=== PATIENT | male | born 1955 | race Caucasian/White ===

== ENCOUNTER 2023-04-09 23:42 | Emergency (ER) | payer MEDICARE, SELFPAY ==
--- NOTE | 2023-04-09 23:30 | RT.EKG_ITS ---
APPROVED REPORT Exam: Resting ECG Reason for Exam: Arm Pain Patient Location: E HR:57 bpm ECG Measurements Heart Rate 57 AXIS NE 173 P 43 QRSd 86 QRS 10 QT 412 T 54 QTc 396 Conclusion Sinus bradycardia...rate< 60 Ventricular premature complex...V complex w/ short R-R interval Physician: no stemi
[2023-04-09 23:46] VITALS: BP 162/84; PULSE 60; RESP 16; TEMP 36.6; O2SAT 100
[2023-04-09 23:47] VITALS: O2SAT 97
[2023-04-09 23:50] VITALS: BP 162/84; PULSE 55; RESP 20; O2SAT 94
[2023-04-09 23:51] VITALS: PULSE 56; RESP 21; O2SAT 95
[2023-04-09 23:53] VITALS: RESP 14
[2023-04-10] VITALS (34 sets, daily range): BP systolic 109–152; BP diastolic 63–75; PULSE 47–60; RESP 12–62; O2SAT 91–97
[2023-04-10 00:03] LABS: Abs Immature Grans 0.03 10^3/uL (0.0-0.06); Absolute Basophil Count 0.04 10^3/uL (0.0-0.2); Absolute Eosinophil Count 0.29 10^3/uL (0.0-0.7); Absolute Lymphocyte Count 2.25 10^3/uL (1.2-3.4); Absolute Monocyte Count 0.55 10^3/uL (0.1-0.8); Absolute Neutrophil Count 4.01 10^3/uL (1.2-6.7); Basophils % 0.6; HCT 43.1 % (40.0-50.0); HGB 14.7 g/dL (13.5-17.5); Immature Grans % 0.4; Lymphocytes % 31.4; MCH 28.9 pg (27.0-33.0); MCHC 34.1 % (32.0-36.0); MCV 85 fL (80-95); MPV 9.8 fL (8.0-11.0); Monocytes % 7.7; Neutrophils % 55.9; Platelet Count 172 10^3/uL (130-400); RBC 5.08 10^6/uL (4.36-5.78); RDW-SD 40.1 fL; WBC 7.17 10^3/uL (4.4-10.8)
[2023-04-10] MEDS: nitroGLYcerin 0.4 MG TAB SL (00:10)
[2023-04-10] MEDS: Aspirin 81 MG CHEW 324 MG CH (00:10)
--- NOTE | 2023-04-10 00:15 | DI.RAD_ITS ---
Exam(s) XR SHOULDER LT COMPLETE 2+V EXAM: XR SHOULDER LT COMPLETE 2+V CLINICAL HISTORY: left chest and shoulder pain. TECHNIQUE: 2D digital imaging was performed of the left shoulder. Five images were obtained. AP, G rashey, Y-view and axillary views were obtained. COMPARISON: No exams were available for comparison FINDINGS: BONES: No acute fracture is present. No bony destructive lesion is seen. Postsurgical changes are see n at the acromioclavicular joint and the proximal humerus. JOINTS: No dislocation present. SOFT TISSUE: Normal. IMPRESSION: No acute abnormality. DATA REPOSITORY: RADIATION DOSE DELIVERED:
[2023-04-10 00:19] LABS: INR 0.9 (0.9-1.1); PTT Activated 22.9 sec (21.5-31.9); Prothrombin Time 9.5 sec (9.3-11.0)
--- NOTE | 2023-04-10 00:23 | W.ED.GENAD ---
Discharge Plan Disposition Patient Disposition: Home Discharge Details Clinical Impression: Acute pain of left shoulder Primary Care Provider: Alvin Davis ED Provider: Kristian Gonzalez Home Meds and New Rx's Prescriptions: No Action atorvastatin 40 mg Tablet 40 mg PO DAILY aspirin 325 mg Tablet 325 mg PO DAILY metoprolol succinate 200 mg Tablet Extended Release 24 Hr 200 mg PO DAILY lisinopril 20 mg Tablet 20 mg PO DAILY metformin 1,000 mg Tablet 1,000 mg PO DAILY hydrochlorothiazide 25 mg Tablet 25 mg PO DAILY Discharge Instructions Instructions: Shoulder Pain (ED) Additional Instructions: At this time your work-up shows no evidence of significant cardiac abnormality. Your symptoms may be secondary to compression on nerves, or muscle spasm. If you notice any worsening of your symptoms, or any new symptoms such as vomiting, diarrhea, fever, chills, shortness of breath, chest pain, numbness, weakness, or fainting , please return immediately to the emergency department for reevaluation. Please follow up with your primary care provider as soon as possible for reassessment and reevaluation. As always, it was a pleasure participating in your medical care today. Referrals: Alvin Davis MD [Primary Care Provider] - Medical Decision Making 68-year-old male with a past medical history of hypertension, high cholesterol, diabetes mellitus type 2, who presents today for evaluation of left arm pain. Patient has never smoked before. He denies any history of cardiac disease. Patient states that at about 4 PM he developed left arm achiness which radiates up into his left shoulder. He denies any activities that could have brought this on. He denies any trauma. He denies any numbness or tingling. This symptom began while he was sitting and at rest. It is not worsened with exertion. He denies any chest pain chest heaviness chest tightness. He denies any tearing or ripping sensation. No other complaints at this time. He denies any shortness of breath or exertional dyspnea. No other modifying factors. Pain is not made worse when he moves his arm. Exam demonstrates well-appearing male, vital signs stable. Radial pulses +2 bilaterally. No neurovascular deficits. Good range of motion for the left upper extremity. No focal tenderness. No signs of trauma. Differential includes muscle spasm, arthritis, less likely cardiac ACS. Will evaluate for concerning etiologies, monitor closely and reassess. EKG shows sinus bradycardia with no other significant concerning abnormalities. No evidence of STEMI. 3:40 AM Laboratory work-up demonstrates normal troponins x2, stable laboratory work-up, electrolytes normal. Magnesium slightly low at 1.4, this was corrected with 2 g of IV magnesium. Chest x-ray and x-ray of the shoulder negative for acute process. Patient's pain has resolved. Symptoms appear to be clinically inconsistent with ACS or STEMI at this time. FINDINGS: Lungs: Unremarkable. No consolidation. Pleural spaces: Unremarkable. No pleural effusion. No pneumothorax. Heart/Mediastinum: Unremarkable. No cardiomegaly. Bones/joints: Unremarkable. IMPRESSION: No acute findings. Thank you for allowing us to participate in the care of your patient. Dictated and Authenticated by: Manjit Pinzon MD 04/10/2023 1:23 AM Eastern Time ([place] & [place]) FINDINGS: Bones/joints: Normal. Soft tissues: Normal. IMPRESSION: No acute findings. Thank you for allowing us to participate in the care of your patient. Dictated and Authenticated by: Manjit Pinzon MD 04/10/2023 1:23 AM Eastern Time ([place] & [place]) HPI General Date/Time Provider Initiated Documentation: 04/09/23 23:45. HPI Narrative: 68-year-old male with a past medical history of hypertension, high cholesterol, diabetes mellitus type 2, who presents today for evaluation of left arm pain. Patient has never smoked before. He denies any history of cardiac disease. Patient states that at about 4 PM he developed left arm achiness which radiates up into his left shoulder. He denies any activities that could have brought this on. He denies any trauma. He denies any numbness or tingling. This symptom began while he was sitting and at rest. It is not worsened with exertion. He denies any chest pain chest heaviness chest tightness. He denies any tearing or ripping sensation. No other complaints at this time. He denies any shortness of breath or exertional dyspnea. No other modifying factors. Pain is not made worse when he moves his arm. Related Data Home Medications Medication Instructions Recorded Confirmed aspirin 325 mg tablet 325 mg PO DAILY 04/09/23 04/10/23 atorvastatin 40 mg tablet 40 mg PO DAILY 04/09/23 04/09/23 hydrochlorothiazide 25 mg tablet 25 mg PO DAILY 04/09/23 04/10/23 lisinopril 20 mg tablet 20 mg PO DAILY 04/09/23 04/09/23 metformin 1,000 mg tablet 1,000 mg PO DAILY 04/09/23 04/09/23 metoprolol succinate 200 mg 200 mg PO DAILY 04/09/23 04/09/23 tablet,extended release 24 hr Allergies Allergy/AdvReac Type Severity Reaction Status Date / Time Sulfa (Sulfonamide Allergy Unverified 04/09/23 23:56 Antibiotics) General Stated Complaint: Chest Pain RONEL: 3 Review of Systems All systems reviewed & are unremarkable except as noted in HPI and below PFSH All Active Problems (Updated 04/10/23 @ 03:31 by Kristian Gonzalez DO) Acute pain of left shoulder (Acute) Social History Smoking/Tobacco Use Status: Never Smoking risk assessment performed?: Yes Alcohol Intake: never Drug use: Never Do you feel safe at home: Yes Do you feel safe in your relationship?: Yes Exam Narrative Exam Narrative: 1.Const: Well-nourished, Well-developed, appearing stated age 2.Eyes: PERRL, no conjunctival injection, and symmetrical lids. 3.ENT: Atraumatic external nose and ears. Moist MM. Neck: Symmetric, trachea midline, No thyromegaly. 4.CVS: +S1/S2, No murmurs or gallops. Peripheral pulses 2+ and equal in all extremities. Brisk capillary refill in all extremities. 5.RESP: Unlabored respiratory effort. Clear to auscultation bilaterally. No wheezes rales or rhonchi 6.GI: Soft, Nontender/Nondistended, No hepatosplenomegaly. No guarding or rebound. 7.MSK: Normocephalic/Atraumatic, Extremities w/o deformity or ttp No cyanosis or clubbing, Normal movement of all extremities 8.Skin: Warm, Dry. No rashes or lesions. 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 Sensation grossly intact, no focal neurologic deficits. 10.Psych: (AAO) x3. Appropriate mood and affect Course Vital Signs Vital signs: Vital Signs Temperature 36.6 C 04/09/23 23:46 Pulse 60 04/09/23 23:46 Respiratory Rate 16 04/09/23 23:46 Blood Pressure 162/84 H 04/09/23 23:46 Pulse Oximetry 100 04/09/23 23:46 Temperature 36.6 C 04/09/23 23:46 Temperature Source Tympanic 04/09/23 23:46 Pulse 60 04/09/23 23:46 Respiratory Rate 14 04/09/23 23:53 Respiratory Effort Normal, Non-Labored 04/09/23 23:53 Respiratory Depth Normal 04/09/23 23:53 Respiratory Pattern Normal 04/09/23 23:53 Blood Pressure 162/84 H 04/09/23 23:46 Blood Pressure Position Supine 04/09/23 23:46 Pulse Oximetry 100 04/09/23 23:46 Oxygen Delivery Method Room Air 04/09/23 23:46 Oxygen Flow Rate 0 04/09/23 23:46 Pain Level 5 04/09/23 23:53 Lab/Test Results Lab/Test Results: Laboratory Tests Range/Units 04/09/23 04/09/23 23:53 23:53 WBC (4.4-10.8) 10^3/uL 7.17 RBC (4.36-5.78) 10^6/uL 5.08 Hgb (13.5-17.5) g/dL 14.7 Hct (40.0-50.0) % 43.1 MCV (80-95) fL 85 MCH (27.0-33.0) pg 28.9 MCHC (32.0-36.0) % 34.1 RDW (11.8-14.1) % 13.0 Plt Count (130-400) 10^3/uL 172 MPV (8.0-11.0) fL 9.8 Immature Gran % 0.4 Neutrophils % 55.9 Lymphocytes % 31.4 Monocytes % 7.7 Eosinophils % 4.0 Basophils % 0.6 Nucleated RBC % (0.0-0.3) % 0.0 Absolute Neutrophils (1.2-6.7) 10^3/uL 4.01 Absolute Lymphocytes (1.2-3.4) 10^3/uL 2.25 Absolute Monocytes (0.1-0.8) 10^3/uL 0.55 Absolute Eosinophils (0.0-0.7) 10^3/uL 0.29 Absolute Basophils (0.0-0.2) 10^3/uL 0.04 PT (9.3-11.0) sec 9.5 INR (0.9-1.1) 0.9 APTT (21.5-31.9) sec 22.9
[2023-04-10 00:26] LABS: ALT 37 U/L (16-63); AST 23 U/L (15-37); Alkaline Phosphatase 85 U/L (46-116); Anion Gap 9.1 mmol/L (3-11); BUN 22 mg/dL (7-18); Bilirubin, Total 0.6 mg/dL (0.2-1.0); CO2 28.9 mmol/L (21.0-32.0); Calcium 9.1 mg/dL (8.5-10.1); Chloride 104 mmol/L (98-107); Estimated GFR 83.01 (mL/min/1.73m2); Glucose 125 mg/dL (74-106); Magnesium 1.4 mg/dL (1.8-2.4); NT-proBNP 82 pg/mL (<300); Sodium 142 mmol/L (136-145); Total Protein 6.8 g/dL (6.4-8.2); Troponin I < 50 ng/L (<or=60)
--- NOTE | 2023-04-10 00:29 | DI.RAD_ITS ---
Exam(s) XR CHEST 1V IN DI DEPT EXAM: XR CHEST 1V IN DI DEPT CLINICAL HISTORY: left chest and shoulder pain TECHNIQUE: 2D digital imaging was performed of the chest. One image was obtained. An AP view was ob tained. COMPARISON: No exams were available for comparison FINDINGS: MEDIASTINUM: Normal. HEART: Normal. PULMONARY VASCULATURE: Normal. LUNGS: Clear. PLEURAL SPACE: No pleural effusion or pneumothorax. BONE:Within normal limits for the patient's age. OTHER FINDINGS:Normal. IMPRESSION: No acute pulmonary findings. DATA REPOSITORY: RADIATION DOSE DELIVERED:
--- NOTE | 2023-04-10 01:23 | DI.VRAD_ITS ---
PROCEDURE INFORMATION: Exam: XR Left Shoulder Exam date and time: 04/10/2023 12:58 AM Age: 68 years old Clinical indication: Left; Prior surgery; Surgery date: 6+ months; Surgery type: L shoulder; Patient HX: L chest and shoulder pain TECHNIQUE: Imaging protocol: Radiologic exam of the left shoulder. Views: 2 or more views. COMPARISON: CR XR CHEST 1V IN DI DEPT 04/10/2023 12:56 AM FINDINGS: Bones/joints: Normal. Soft tissues: Normal. IMPRESSION: No acute findings. Dictated and Authenticated by: Manjit Pinzon MD. Ordering:CARMEN Townsend MD
--- NOTE | 2023-04-10 01:23 | DI.VRAD_ITS ---
PROCEDURE INFORMATION: Exam: XR Chest Exam date and time: 04/10/2023 12:56 AM Age: 68 years old Clinical indication: Left-sided; Prior surgery; Surgery date: 6+ months; Surgery type: L shoulder; Patient HX: L chest and shoulder pain TECHNIQUE: Imaging protocol: Radiologic exam of the chest. Views: 1 view. COMPARISON: No relevant prior studies available. FINDINGS: Lungs: Unremarkable. No consolidation. Pleural spaces: Unremarkable. No pleural effusion. No pneumothorax. Heart/Mediastinum: Unremarkable. No cardiomegaly. Bones/joints: Unremarkable. IMPRESSION: No acute findings. Dictated and Authenticated by: Manjit Pinzon MD. Ordering:CARMEN Townsend MD
[2023-04-10 03:18] LABS: Troponin I < 50 ng/L (<or=60)
== END 2023-04-10 03:47 | disposition home or self-care (01) ==
PROVIDERS: Emergency Provider Student in an Organized Health Care Education/Training Program; PCP Family Medicine
DX: M25.512 Pain in left shoulder (principal); R07.89 Other chest pain; R00.1 Bradycardia, unspecified; R06.02 Shortness of breath; I10 Essential (primary) hypertension; E78.5 Hyperlipidemia, unspecified; E11.9 Type 2 diabetes mellitus without complications; Z79.84 Long term (current) use of oral hypoglycemic drugs; Z79.82 Long term (current) use of aspirin; Z98.890 Other specified postprocedural states; Z79.899 Other long term (current) drug therapy
CPT/HCPCS: 80053; 93005; 99284; 71045; 73030; 83735; 83880; 84484; 85025; 85610; 85730; 93010; 99283

== ENCOUNTER 2024-06-05 12:28 | Outpatient (CLI) | payer MEDICARE, SELFPAY ==
[2024-06-07 15:58] LABS: PSA, Ultrasensitive 0.06 ng/mL (<= 4.5)
== END 2024-06-05 12:29 | disposition home or self-care (01) ==
LOC: LBO 12:28
PROVIDERS: PCP Family Medicine; Visit Provider Student in an Organized Health Care Education/Training Program
DX: C61 Malignant neoplasm of prostate (principal)
CPT/HCPCS: 36415; 84153; 84403

== ENCOUNTER 2024-10-31 02:39 | Outpatient (CLI) | payer MEDICARE, SELFPAY ==
--- NOTE | 2024-10-31 | DI.DEXA_ITS ---
Exam(s) XR DEXA BONE DENSITY W/WO KARLO EXAM: XR DEXA BONE DENSITY W/WO KARLO CLINICAL HISTORY: PROSTATE CA, C61, BOSS MINER CURRENT USE SYSTEMIC STEROIDS, Z79.52, ON ADT TECHNIQUE: Routine DEXA evaluation of the lumbar spine, hip, or forearm. COMPARISON: No exams were available for comparison FINDINGS: Performed on a Hologic unit. Lateral image: No compression fracture evident. Lumbar Spine total T-score: 0.1 Hip total T-score:0.4 Independent reading at the level of the femoral neck yields T-score of -0.7 Forearm total T-score: -1.1 IMPRESSION: Bone mineral density measures in the normal range for lumbar spine and hip. Bone mineral density amrit sures in the osteopenia range at the wrist level. Fracture risk is low-moderate Note: Any spine fracture indicates 5x risk for subsequent spine fracture and 2x risk for subsequent h ip fracture. World Health Organization criteria for BMD interpretation classify patients: Normal...... T- Score at or above -1.0 Osteopenic... T- Score between -1.0 and -2.5 Osteoporosis... T-Score at or below -2.5
== END 2024-10-31 02:59 ==
LOC: DI 02:39
PROVIDERS: PCP Family Medicine; Visit Provider Radiology Radiation Oncology
DX: Z79.52 Long term (current) use of systemic steroids (principal); M85.89 Other specified disorders of bone density and structure, multiple sites; C61 Malignant neoplasm of prostate
CPT/HCPCS: 77080

== ENCOUNTER 2024-10-31 03:10 | Outpatient (CLI) | payer MEDICARE, SELFPAY ==
[2024-11-04 11:52] LABS: PSA, Ultrasensitive 0.03 ng/mL (<= 4.5)
[2024-11-05 14:36] LABS: Testosterone, Total <7.0 ng/dL (240-950)
== END 2024-10-31 03:11 | disposition home or self-care (01) ==
LOC: LBO 03:10
PROVIDERS: PCP Family Medicine; Visit Provider Radiology Radiation Oncology
DX: C61 Malignant neoplasm of prostate (principal)
CPT/HCPCS: 36415; 84153; 84403

== ENCOUNTER 2024-11-12 13:55 | Outpatient (CLI) | payer MEDICARE, SELFPAY ==
[2024-11-12 12:57] LABS: Abs Immature Grans 0.01 10^3/uL (0.0-0.06); Absolute Basophil Count 0.04 10^3/uL (0.0-0.2); Absolute Eosinophil Count 0.29 10^3/uL (0.0-0.7); Absolute Lymphocyte Count 1.11 10^3/uL (1.2-3.4); Absolute Monocyte Count 0.51 10^3/uL (0.1-0.8); Absolute Neutrophil Count 3.71 10^3/uL (1.2-6.7); Basophils % 0.7 %; Eosinophils % 5.1 %; HCT 40.5 % (40.0-50.0); HGB 13.4 g/dL (13.5-17.5); Immature Grans % 0.2 %; Lymphocytes % 19.6 %; MCH 28.6 pg (27.0-33.0); MCHC 33.1 % (32.0-36.0); MCV 86 fL (80-95); MPV 9.8 fL (8.0-11.0); Neutrophils % 65.4 %; Platelet Count 159 10^3/uL (130-400); RBC 4.69 10^6/uL (4.36-5.78); RDW 13.3 % (11.8-14.1); RDW-SD 41.8 fL; WBC 5.67 10^3/uL (4.4-10.8)
[2024-11-12 13:12] LABS: ALT 20 U/L (16-63); AST 19 U/L (15-37); Albumin 3.8 g/dL (3.4-5.0); Alkaline Phosphatase 100 U/L (46-116); Anion Gap 8.1 mmol/L (3-11); BUN 25 mg/dL (7-18); Bilirubin, Total 0.53 mg/dL (0.2-1.0); CO2 28.9 mmol/L (21.0-32.0); CREATININE 1.1 mg/dL (0.70-1.30); Calcium 8.9 mg/dL (8.5-10.1); Chloride 107 mmol/L (98-107); Estimated GFR 73.58 (mL/min/1.73m2); Glucose 134 mg/dL (74-106); Potassium 4.1 mmol/L (3.5-5.1); Sodium 144 mmol/L (136-145); Total Protein 6.7 g/dL (6.4-8.2)
== END 2024-11-12 13:56 | disposition home or self-care (01) ==
LOC: LBO 13:55
PROVIDERS: PCP Family Medicine; Visit Provider Colon & Rectal Surgery
DX: C61 Malignant neoplasm of prostate (principal); Z79.818 Long term (current) use of other agents affecting estrogen receptors and estrogen levels
CPT/HCPCS: 36415; 80053; 85025

== ENCOUNTER 2025-02-04 11:52 | Outpatient (CLI) | payer MEDICARE, SELFPAY ==
[2025-02-04 12:11] LABS: Abs Immature Grans 0.02 10^3/uL (0.0-0.06); Absolute Basophil Count 0.03 10^3/uL (0.0-0.2); Absolute Eosinophil Count 0.31 10^3/uL (0.0-0.7); Absolute Lymphocyte Count 1.04 10^3/uL (1.2-3.4); Absolute Monocyte Count 0.44 10^3/uL (0.1-0.8); Absolute Neutrophil Count 3.03 10^3/uL (1.2-6.7); Basophils % 0.6 %; Eosinophils % 6.4 %; HCT 38.6 % (40.0-50.0); HGB 12.9 g/dL (13.5-17.5); Immature Grans % 0.4 %; Lymphocytes % 21.4 %; MCH 28.7 pg (27.0-33.0); MCHC 33.4 % (32.0-36.0); MCV 86 fL (80-95); MPV 9.9 fL (8.0-11.0); Neutrophils % 62.2 %; Platelet Count 145 10^3/uL (130-400); RBC 4.49 10^6/uL (4.36-5.78); RDW-SD 43.7 fL; WBC 4.87 10^3/uL (4.4-10.8)
[2025-02-04 12:29] LABS: ALT 21 U/L (16-63); AST 19 U/L (15-37); Albumin 3.9 g/dL (3.4-5.0); Alkaline Phosphatase 92 U/L (46-116); Anion Gap 7.3 mmol/L (3-11); BUN 33 mg/dL (7-18); Bilirubin, Total 0.7 mg/dL (0.2-1.0); CO2 31.7 mmol/L (21.0-32.0); Calcium 9.7 mg/dL (8.5-10.1); Chloride 103 mmol/L (98-107); Estimated GFR 81.98 (mL/min/1.73m2); Glucose 129 mg/dL (74-106); Potassium 4.2 mmol/L (3.5-5.1); Sodium 142 mmol/L (136-145)
[2025-02-07 09:40] LABS: PSA, Ultrasensitive 0.03 ng/mL (<= 4.5)
[2025-02-09 13:31] LABS: Testosterone, Total <7.0 ng/dL (240-950)
== END 2025-02-04 11:53 | disposition home or self-care (01) ==
LOC: LBO 11:53
PROVIDERS: PCP Family Medicine; Visit Provider Physician Assistant
DX: C61 Malignant neoplasm of prostate (principal); Z79.818 Long term (current) use of other agents affecting estrogen receptors and estrogen levels
CPT/HCPCS: 36415; 80053; 84153; 84403; 85025

== ENCOUNTER 2025-04-21 03:22 | Outpatient (CLI) | payer MEDICARE, SELFPAY ==
[2025-04-21 10:17] LABS: Abs Immature Grans 0.01 10^3/uL (0.0-0.06); HCT 39.0 % (40.0-50.0); HGB 13.2 g/dL (13.5-17.5); Immature Grans % 0.2 %; MCH 28.9 pg (27.0-33.0); MCHC 33.8 % (32.0-36.0); MCV 86 fL (80-95); MPV 10.1 fL (8.0-11.0); Platelet Count 169 10^3/uL (130-400); RBC 4.56 10^6/uL (4.36-5.78); RDW 13.4 % (11.8-14.1); RDW-SD 41.6 fL; WBC 5.47 10^3/uL (4.4-10.8)
[2025-04-21 11:50] LABS: ALT 21 U/L (16-63); AST 19 U/L (15-37); Albumin 4.1 g/dL (3.4-5.0); Alkaline Phosphatase 90 U/L (46-116); Anion Gap 6.9 mmol/L (3-11); BUN 44 mg/dL (7-18); Bilirubin, Total 0.7 mg/dL (0.2-1.0); CO2 32.1 mmol/L (21.0-32.0); Calcium 9.5 mg/dL (8.5-10.1); Chloride 100 mmol/L (98-107); Estimated GFR 54.75 (mL/min/1.73m2); Glucose 264 mg/dL (74-106); Potassium 3.9 mmol/L (3.5-5.1); Sodium 139 mmol/L (136-145); Total Protein 7.1 g/dL (6.4-8.2)
== END 2025-04-21 03:23 | disposition home or self-care (01) ==
LOC: LBO 03:23
PROVIDERS: PCP Family Medicine; Visit Provider Physician Assistant
DX: C61 Malignant neoplasm of prostate (principal)
CPT/HCPCS: 36415; 80053; 84153; 84403; 85025

== ENCOUNTER 2025-06-19 13:07 | Outpatient (CLI) | payer MEDICARE, SELFPAY | END 2025-06-19 13:08 | disposition home or self-care (01) | LOC: LBO 13:07 | PROVIDERS: PCP Family Medicine; Visit Provider Physician Assistant | DX: C61 Malignant neoplasm of prostate (principal) | CPT/HCPCS: 36415; 84153; 84403 ==